=== PATIENT | male | born 1965 | race Caucasian/White ===

== ENCOUNTER 2017-09-04 17:21 | Emergency (ER) | payer MEDICARE, MEDICAID ==
[2017-09-04 18:35] VITALS: BP 92/50
--- NOTE | 2017-09-04 18:58 | UC ---
UC General HPI - HPI Summary HPI Summary: per intensive care unit registered nurse and cousin, pt having increasing weakness, fever and no taking food or drink since yesterday. pt also having drastic weight loss over several months of unknown cause. no cough, sob, v/d. - History of Current Complaint Chief Complaint: UCGeneralIllness Stated Complaint: FEVER/NO APPETITE/SHAKES Time Seen by Provider: 09/04/17 18:40 Hx Obtained From: Family/Estate Planning Director Onset/Duration: Gradual Onset Timing: Constant Pain Intensity: 0 Associated Signs & Symptoms: Positive: Decreased Oral Intake, Fever, Weakness. Negative: Cough, Diarrhea, SOB, Vomiting - Allergy/Home Medications Allergies/Adverse Reactions: Allergies Allergy/AdvReac Type Severity Reaction Status Date / Time aspirin Allergy See Comment Verified 09/04/17 18:37 Home Medications: Home Medications Acetaminophen TAB* [Tylenol TAB*] 325 mg PO Q4H PRN 09/04/17 [History Confirmed 09/04/17] guaiFENesin [Cough Syrup] 100 mg PO Q4H PRN 09/04/17 [History Confirmed 09/04/17 ] PMH/Surg Hx/FS Hx/Imm Hx - Additional Past Medical History Additional PMH: Down syndrom, mitral valve regurgitation, ocd, jaxson Endocrine History: Thyroid Disease, Dyslipidemia - Surgical History Surgical History: None - Family History Known Family History: Positive: Unknown - Social History Occupation: Disabled Lives: [facility] Alcohol Use: None Substance Use Type: None Smoking Status (MU): Never Smoked Tobacco Review of Systems Constitutional: Fever Neurological: Weakness Is Patient Immunocompromised?: No All Other Systems Reviewed And Are Negative: No - Comments Additional Review of Systems Comments: pt unable to give ros due to hx downs syndrom and intensive care unit registered nurse/family provided what they could Physical Exam Triage Information Reviewed: Yes Appearance: Ill-Appearing, Thin Vital Signs: Initial Vital Signs Temp 101.4 F 09/04/17 18:26 Pulse 84 09/04/17 18:26 Resp 16 09/04/17 18:26 BP 92/50 09/04/17 18:26 Pulse Ox 96 09/04/17 18:26 Vital Signs Reviewed: Yes Eyes: Positive: Conjunctiva Clear ENT: Positive: Pharynx normal, TMs normal, Other - tongue is dry. Negative: Nasal congestion, Nasal drainage Neck: Positive: Supple, Nontender, No Lymphadenopathy Respiratory: Positive: Lungs clear, Normal breath sounds Cardiovascular: Positive: RRR, No Murmur Abdomen Description: Positive: Nontender, No Organomegaly, Soft. Negative: CVA Tenderness (R), CVA Tenderness (L), Guarding Bowel Sounds: Positive: Present Musculoskeletal: Positive: ROM Intact Neurological: Positive: Alert - per baseline Psychological: Positive: Normal Response To Family Skin Exam: Other - pale, dry. Course/Dx - Course Course Of Treatment: GIVEN THE FEVER, WEAKNESS AND BP, THIS MAY BE EARLY SEPSIS. PT REQUIRES ER EVALUATION. EMS DECLINED BY FAMILY MEMEBER AND TEACHER SPECIALIST DESPITE RISK OF WORSENING, MORBIDITY AND MORTALITY ASSOCIATED WITH SEPSIS. THEY WILL DRIVE PT DIRECTLY TO THE [facility] ER. - Differential Dx - Multi-Symptom Provider Diagnoses: FEVER, HYPOTENSION, WEAKNESS Discharge - Sign-Out/Discharge Documenting (check all that apply): Discharge/Admit/Transfer - Discharge Plan Condition: Stable Disposition: TRANS HIGHER LVL OF CARE FAC Referrals: Gladys Hickey PA [Primary Care Provider] - Additional Instructions: GO DIRECTLY TO THE [facility] EMERGENCY ROOM UPON DISCHARGE FROM THIS URGENT CARE. - Billing Disposition and Condition Condition: STABLE Disposition: RA
== END 2017-09-04 19:05 | disposition short-term general hospital (02) ==
LOC: UCCORT 17:21
DX: R50.9 Fever, unspecified (principal); I95.9 Hypotension, unspecified; R53.1 Weakness; Z88.6 Allergy status to analgesic agent
CPT/HCPCS: 99202; G0463

== ENCOUNTER 2018-09-10 18:43 | Inpatient (IN) | payer MEDICARE, MEDICAID ==
--- NOTE | 2018-09-10 20:30 | ED ---
Complex/Multi-Sys Presentation - HPI Summary HPI Summary: Per staff and patient family, patient with history of dementia from assisted living at [facility] in [place] complains of refusing meals, refusing to stand up and ambulate, change in behavior x 3 days. Patient was taken initially taken to [place] ED and then was transferred here as CT machine at [place] is down. CT brain requested. Staff denies known fever, cough, SOB, N/ V/D, change in urine, change in BM. Patient at baseline cannot provide history of present illness information. Medical history is dementia, MR. - History Of Current Complaint Chief Complaint: EDGeneral Time Seen by Provider: 09/10/18 19:06 Hx Obtained From: Family/Cotton Farmer Onset/Duration: Gradual Onset, Lasting Days Timing: Constant Severity Currently: Moderate Severity Initially: Moderate - Allergies/Home Medications Allergies/Adverse Reactions: Allergies Allergy/AdvReac Type Severity Reaction Status Date / Time aspirin Allergy See Comment Verified 09/04/17 18:37 Home Medications: Home Medications Docusate Sodium [Colace] 1 cap PO DAILY 09/10/18 [History Confirmed 09/10/18] Pantoprazole TAB * [Protonix TAB*] 1 tab PO DAILY 09/10/18 [History Confirmed ] Polyethylene Glycol 3350 [Miralax] 1 packet PO DAILY PRN 09/10/18 [History Confirmed 09/10/18] Rivaroxaban TAB(*) [Xarelto 20 mg] 1 tab PO DAILY 09/10/18 [History Confirmed ] Rivastigmine 1 patch TOPICAL DAILY 09/10/18 [History Confirmed 09/10/18] Vit B12/Intrinsic Fact/Folate [Intrinsi B36-Tmmjej Tablet] 1 tab PO DAILY [History Confirmed 09/10/18] PMH/Surg Hx/FS Hx/Imm Hx Endocrine/Hematology History: Denies: Hx Diabetes, Hx Thyroid Disease Cardiovascular History: Denies: Hx Pacemaker/ICD Respiratory History: Denies: Hx Asthma, Hx Chronic Obstructive Pulmonary Disease (COPD) GI History: Denies: Hx Ulcer History: Denies: Hx Dialysis Sensory History: Denies: Hx Eye Prosthesis Opthamlomology History: Denies: Hx Legally Blind EENT History: Denies: Hx Deafness Neurological History: Reports: Hx Dementia Infectious Disease History: No Infectious Disease History: Denies: Hx Hepatitis, Traveled Outside the [place] in Last 30 Days - Family History Known Family History: Positive: Unknown - Social History Alcohol Use: None Substance Use Type: Reports: None Smoking Status (MU): Never Smoked Tobacco Review of Systems Constitutional: Negative Eyes: Negative ENT: Negative Cardiovascular: Negative Respiratory: Negative Gastrointestinal: Negative Genitourinary: Negative Musculoskeletal: Negative Skin: Negative Neurological: Negative Psychological: Normal All Other Systems Reviewed And Are Negative: Yes Physical Exam - Summary Physical Exam Summary: Patient in no apparent distress. Lung sounds clear to auscultation bilaterally. RRR. Abdomen soft nontender. No indication of trauma. Ear exam normal. Patient would not cooperate with oropharyngeal exam. Patient appears dehydrated with dry lips. Triage Information Reviewed: Yes Vital Signs On Initial Exam: Initial Vitals Temp Pulse Resp BP Pulse Ox 100.5 F 91 16 108/61 94 09/10/18 18:48 09/10/18 18:48 09/10/18 18:48 09/10/18 18:48 09/10/18 18:48 Vital Signs Reviewed: Yes Appearance: Positive: Well-Appearing Skin: Positive: Warm Head/Face: Positive: Normal Head/Face Inspection Eyes: Positive: Normal ENT: Positive: TMs normal Neck: Positive: Supple Respiratory/Lung Sounds: Positive: Clear to Auscultation Cardiovascular: Positive: Normal Abdomen Description: Positive: Nontender Musculoskeletal: Positive: Normal Neurological: Positive: Normal Psychiatric: Positive: Normal AVPU Assessment: Alert - David Coma Scale Best Eye Response: 4 - Spontaneous Diagnostics - Vital Signs Vital Signs Temp Pulse Resp BP Pulse Ox 09/10/18 20:00 97 13 79 09/10/18 19:54 69 15 109/62 93 09/10/18 19:24 74 15 106/59 96 09/10/18 19:00 94 19 94 09/10/18 18:55 89 14 108/61 94 09/10/18 18:52 11 09/10/18 18:48 100.5 F 91 16 108/61 94 - Laboratory Result Diagrams: 09/10/18 20:43 09/10/18 20:43 Lab Statement: Any lab studies that have been ordered have been reviewed, and results considered in the medical decision making process. Complex Multi-Symp Course/Dx Course Of Treatment: Per staff and patient family, patient with history of dementia from assisted living at [facility] in [place] complains of refusing meals, refusing to stand up and ambulate, change in behavior x 3 days. Patient was taken initially taken to [place] ED and then was transferred here as CT machine at [place] is down. CT brain requested. Staff denies known fever, cough, SOB, N/V/D, change in urine, change in BM. Patient at baseline cannot provide history of present illness information. Medical history is dementia, MR. Physical exam:Patient in no apparent distress. Lung sounds clear to auscultation bilaterally. RRR. Abdomen soft nontender. No indication of trauma. Ear exam normal. Patient would not cooperate with oropharyngeal exam. Patient appears dehydrated with dry lips. Temp 100.5. Vital signs otherwise within normal limits. WBC 11.9. CRP 71. Bilirubin 1.4. Labs otherwise unremarkable. Urine negative. CT brain negativ for acute process. Also positive for brain atrophy out of proportion to patient's age. No prior CT to compare to. Chest x-ray unremarkable. Discussed patient with Dr Kurtz who due to Down Syndrome and fever of unknown source recommended CT chest abdomen and pelvis, IV vancomycin and Zosyn. CT chest abdomen pelvis positive only for possible cystitis. UA clean. Patient lives at assisted living, has primary care. Blood cultures are pending. Caregivers will be advised to follow-up with primary care and return to the ED for any new or concerning symptoms. - Diagnoses Provider Diagnoses: Behavioral change, Fever Discharge - Sign-Out/Discharge Documenting (check all that apply): Patient Departure Patient Received Moderate/Deep Sedation with Procedure: No - Discharge Plan Condition: Stable Disposition: HOME Referrals: Gladys Hickey PA [Primary Care Provider] - Additional Instructions: Follow-up with primary care for further evaluation. Return to the ED for any new or worsening symptoms. - Billing Disposition and Condition Condition: STABLE Disposition: Home
[2018-09-10 20:39] LABS: Urine Appearance Clear; Urine Bacteria Absent (Absent); Urine Bilirubin Negative (Negative); Urine Blood 1+ (Negative); Urine Color Amber; Urine Glucose Negative (Negative); Urine Ketones Trace (Negative); Urine Nitrite Negative (Negative); Urine Protein Negative (Negative); Urine Red Blood Cell 1+(3-5/hpf) (Absent); Urine Specific Gravity 1.029 (1.010-1.030); Urine Urobilinogen Negative (Negative); Urine White Blood Cell Trace(0-5/hpf) (Absent)
[2018-09-10] MEDS ORDERED: NS 0.9% 1000 ML** 1,000 ML IV ONE ×3 (20:40→23:41)
[2018-09-10 20:53] LABS: ABS Lymphocytes 1.2 10^3/ul (1.0-4.8); ABS Monocytes 1.3 10^3/ul (0-0.8); ABS Neutrophils 9.2 10^3/ul (1.5-7.7); Hematocrit 46 % (42-52); Hemoglobin 15.3 g/dL (14.0-18.0); Lymphocyte % 9.9 %; Mean Corpuscular HGB Conc 33 g/dL (31-36); Mean Corpuscular Hemoglobin 34 pg (27-31); Mean Corpuscular Volume 101 fL (80-94); Mean Platelet Volume 6.3 fL (7.4-10.4); Platelet Count 219 10^3/uL (150-450); Red Blood Count 4.51 10^6 /uL (4.18-5.48); Red Cell Distribution Width 14 % (10.5-15); White Blood Count 11.7 10^3/uL (3.5-10.8)
[2018-09-10 21:09] LABS: Albumin 4.3 g/dL (3.2-5.2); Albumin/Globulin Ratio 1.3 (1-3); BUN/Creatinine Ratio 18.9 (8-20); C Reactive Protein 71.73 mg/L (<8.01); Calcium 9.8 mg/dL (8.6-10.3); EGFR African American 88.4 (>60); EGFR Non-African American 73.1 (>60); Globulin 3.3 g/dL (2-4); Potassium 3.8 mmol/L (3.5-5.0); Total Bilirubin 1.4 mg/dL (0.2-1.0); Total Protein 7.6 g/dL (6.4-8.9)
[2018-09-10] MEDS ORDERED: Acetaminophen TAB* 325 MG PO ONE (21:49)
[2018-09-10] MEDS ORDERED: Piperacillin/Tazobac ADVAN(*) 3.375 GM in NS 0.9% 100 ML* 100 ML IVPB ONE (23:39)
[2018-09-10] MEDS ORDERED: Vancomycin(*) 1,000 MG in NS 0.9% 250 ML* 250 ML IVPB ONE (23:40)
[2018-09-11] MEDS ORDERED: Iohexol 300* (CONTRAST) 10 ML SDV IV ONE (01:16)
[2018-09-11] MEDS ORDERED: KETAMINE HCL* 50 MG/ML 10 ML VIAL IV ONE (03:33)
[2018-09-11] MEDS ORDERED: Midazolam* 1 MG/ML 5 ML VIAL (5 MG) IV SLOW PU ONE (03:34)
[2018-09-11] MEDS ORDERED: Lidocaine 2% EPI 1:200000 MPF*10-20 ML VIAL ONE (03:41)
--- NOTE | 2018-09-11 03:51 | ED ---
Progress - Progress Note Progress Note: LEVON Rangel had discharge disposition on this patient at shift change 0230. Upon being discharged by the nurse, patient was unable to stand up. Patient's attendants state this was abnormal. Patient had jerky rhythmic movements of extremities, not atypical of seizures. Lumbar puncture rule-out meningitis was performed. Lumbar puncture procedure note: Consent received from guardians. Left lateral decubitus position spinal canal L4-L5, Moderate sedation. Used 20 guage spinal needle and 4 tubes collected. Moderate Sedation procedure:Ketamine and Versed used, Moderate Sedation protocol implemented. No reversal agent used. Vital signs stable throughout procedure. Patient took procedure well. Dr. Arguello accepted the patient for admission. The plan was discussed with the patient and he was agreeable with this plan. Course/Dx - Course Course Of Treatment: LEVON Rangel had discharge disposition on this patient at shift change 0230. Upon being discharged by the nurse, patient was unable to stand up. Patient's attendants state this was abnormal. Patient had jerky rhythmic movements of extremities, not atypical of seizures. Lumbar puncture rule-out meningitis was performed. Lumbar puncture procedure note: Consent received from guardians. Left lateral decubitus position spinal canal L4-L5, Moderate sedation. Used 20 guage spinal needle and 4 tubes collected. Moderate Sedation procedure:Ketamine and Versed used, Moderate Sedation protocol implemented. No reversal agent used. Vital signs stable throughout procedure. Patient took procedure well. Dr. Arguello accepted the patient for admission. The plan was discussed with the patient and he was agreeable with this plan. - Diagnoses Provider Diagnoses: Altered mental status, Weakness Discharge - Sign-Out/Discharge Documenting (check all that apply): Patient Departure - Admission, Receiving Sign-Out Receiving patient FROM: Eder Rangel Patient Received Moderate/Deep Sedation with Procedure: Yes - Discharge Plan Condition: Stable Disposition: ADMITTED TO [facility] - Billing Disposition and Condition Condition: STABLE Disposition: Admitted to [facility] - Attestation Statements Document Initiated by Mike: Yes Documenting Dionicioibranulfo: Jamie Cardona Provider For Whom Mike is Documenting (Include Credential): Noelle Kurtz MD Scribe Attestation: Jamie Martines scribed for Noelle Kurtz MD on 09/11/18 at 0556. Scribe Documentation Reviewed: Yes Provider Attestation: The documentation as recorded by the Jamie castañeda accurately reflects the service I personally performed and the decisions made by me, Noelle Kurtz MD Status of Scribe Document: Viewed
[2018-09-11 03:54] LABS: Hematocrit 40 % (42-52); Hemoglobin 13.7 g/dL (14.0-18.0); Mean Corpuscular HGB Conc 34 g/dL (31-36); Mean Corpuscular Hemoglobin 35 pg (27-31); Mean Corpuscular Volume 102 fL (80-94); Mean Platelet Volume 6.2 fL (7.4-10.4); Platelet Count 180 10^3/uL (150-450); Red Blood Count 3.92 10^6 /uL (4.18-5.48); Red Cell Distribution Width 14 % (10.5-15); White Blood Count 7.9 10^3/uL (3.5-10.8)
[2018-09-11 04:20] LABS: Body Fluid Source Cerebral Spinal
[2018-09-11 04:33] LABS: CSF Glucose 98 mg/dL (40-70)
[2018-09-11] MEDS ORDERED: Acetaminophen TAB* 325 MG PO PRN (05:04)
[2018-09-11 05:32] LABS: Body Fluid Mono 44 %
[2018-09-11 05:41] LABS: Body Fluid Mono 64 %
[2018-09-11] MEDS: Levothyroxine TAB* 88 MCG TAB PO SCH ×2 (06:00→12:45)
--- NOTE | 2018-09-11 07:07 | HP ---
CC: LEVON Carranza* HISTORY AND PHYSICAL: DATE OF ADMISSION: 09/11/18 PRIMARY CARE PROVIDER: LEVON Carranza. CHIEF COMPLAINT: Generalized weakness. HISTORY OF PRESENT ILLNESS: Gasper Barron is a 53-year-old male with history of Down syndrome with recent diagnosis of dementia, who lives in a Nursing Home [facility] in [place] and who was brought into the hospital under night of 09/10/18, after he had been refusing to get up, had decreased appetite for the past week. Apparently, the patient was seen at [facility] 4 days ago with abdominal pain, which it is not clear if it fully resolved or not. At that point, his workup was unremarkable. He presented to our hospital after he was noted to refuse to get up and walk and has had decreased appetite. Here, he had mildly decreased systolic pressures. Received several intravenous fluid boluses. He was noted to have a temperature of 100.5 and was treated with broad spectrum antibiotics. Eventually, after several hours of observation, Dr. Kurtz did a lumbar puncture on the patient. The patient received ketamine and Versed and currently is very sedated. Most of the information is gathered from the patient's help/aide, who came in from [facility] in [place] as well as his sister, healthcare proxy, Bria Liu, who was by the bedside. At baseline, the patient apparently is able to walk with a gait weight when he is outside and without any help when he is in his familiar environment. He is without any major problems at his baseline and the communication is impaired though due to dysarthria, which is chronic. PAST MEDICAL HISTORY: 1. History of Down syndrome. 2. History of dementia. 3. History of OCD. 4. Hypothyroidism. 5. Hyperlipidemia. 6. History of mitral regurgitation. 7. History of moderate intellectual disability. 8. Obstructive sleep apnea. The patient had not tolerated CPAP in the past. 9. History of diagnosis of appositional defiant disorder. 10. The patient has a history of diagnosis of PE after hospitalization a year ago. MEDICATIONS: Medications at home include: 1. Colace 100 mg daily. 2. Rivastigmine 1 patch daily. 3. Xarelto 1 tablet daily. 4. MiraLAX 1 packet daily p.r.n. 5. Protonix 40 mg daily. 6. Vitamin B12 with intrinsic factor 1 tablet daily. 7. Acetaminophen on p.r.n. basis. 8. Lac-Hydrin cream topically b.i.d. p.r.n. 9. Vitamin D3 1000 units daily. 10. Guaifenesin on a p.r.n. basis. 11. Multivitamin daily 1 tablet. 12. Synthroid at 88 mcg daily. FAMILY HISTORY: Unable to obtain. SOCIAL HISTORY: The patient has been in an institution for the past ever since he turned 21. His healthcare proxy is his sister, Bria, who is currently by the bedside. There is no history of tobacco, alcohol or drug use. REVIEW OF SYSTEMS: Please see history of present illness, otherwise unobtainable due to the patient's marked sedation. PHYSICAL EXAMINATION GENERAL: The patient is a 53-year-old male who is sedated, lying in bed, in no acute distress. The patient is not able to follow commands. He is nonverbal currently due to sedation. VITAL SIGNS: Blood pressure of 95/60, heart rate of 71 and regular, respiratory rate 15, oxygen saturation 89% on oxygen. The patient has had problems with oxygenation ever since he had been heavily sedated in the emergency department and he is going to be placed on BiPAP. Temperature 98.7. HEENT: Head: Atraumatic, normocephalic. Eyes: Pupils are 1 mm each minimally reactive to light. Oropharynx clear. Mucosa moist. NECK: Supple. No JVD, no bruits bilaterally. RESPIRATORY: Clear to auscultation bilaterally, but the patient is noted to have upper respiratory rhonchi with inspiration due to likely obstructive sleep apnea. CARDIOVASCULAR: Regular rate and rhythm. No murmurs. ABDOMEN: Soft and nontender. Bowel sounds are present. EXTREMITIES: There is no edema. Pulses are +2 bilaterally. No clubbing or cyanosis. NEUROLOGIC: On neuro evaluation, very limited due to the patient's sedation. The patient's face is symmetrical. He withdraws to pain and equally in all 4 extremities. DIAGNOSTIC STUDIES/LAB DATA: Cerebrospinal fluid analysis showed colorless clear fluid with 0 white blood cells, 1 red blood cells, lymphocytes. Glucose level was 98, total protein of 74. Sodium of 143, potassium 3.8, chloride 107, carbon dioxide 28, BUN 20, creatinine was 1.06. Bilirubin 1.4. Serial troponin of . AST was 42, ALT of 27, alkaline phosphatase of 58. Total CPK of 765. White blood cell count 7.9, hemoglobin of 13.7, hematocrit of 40, MCV of 110, platelets of 180. CT obtained of the abdomen and pelvis; impression: "Findings suggestive of cystitis. Indeterminate right renal lesion, recommend renal protocol MRI or CT in 6 to 12 months. The low-attenuation renal calculus in the midpole of the right kidney measures 1.2 cm." The patient's urinalysis showed trace ketones and trace blood. Brain CT; impression: "No acute intracranial abnormality. Brain atrophy out of proportion to the patient's age." Portable chest x-ray did by myself prior to the official radiology report showed no acute cardiopulmonary abnormality. ASSESSMENT AND PLAN: 1. The patient has low-grade fever, elevated C-reactive protein. So far, there is no source of infection including the cerebrospinal fluid analysis that was basically negative and mildly increased protein level, which may be due to the patient's dementia. I suspect a dehydration. At this point, the patient will be placed in the intensive care unit due to the need for BiPAP. The patient was sedated for the lumbar puncture procedure and has history of obstructive sleep apnea. At this point, the patient received Zosyn and vancomycin in the emergency room. I will not continue these antibiotics, we will continue monitoring the patient. Blood cultures were already obtained. 2. Past history of gastroesophageal reflux disease. Pantoprazole is going to be continued. 3. History of dementia. Rivastigmine is going to be continued. 4. The patient has a history of pulmonary embolism and Xarelto is also going to be continued. 5. The patient's code status was discussed with the patient's sister, Bria, who requested for the patient to be do not resuscitate and do not intubate and appropriate MOLST was signed. TIME SPENT: Approximately 62 minutes was spent in evaluation of this patient in the emergency room at admission, more than half of that time was spent face- to-face with the patient. [id number]/CPS #: [id number] MTDD
[2018-09-11] MEDS: NS 0.9% 1000 ML** 1,000 ML IV SCH (07:51)
--- NOTE | 2018-09-11 08:30 | PN ---
Subjective Date of Service: 09/11/18 Interval History: Seen with daughter/HCP at bedside. Patient has been increasingly weak, sleeping, lethargic over the last week She did notice sinus congestion and conveys a recent URI in herself after a visit to him recently (timing uncertain) This AM nursing notes reviewed and discussed with covering RN - when asleep O2sat decreased to 65% which improved with waking patient up. Significant O2 drops noted while on NC when asleep which rebound to high 90s when awake. Objective Active Medications: Acetaminophen (Tylenol Tab*) 650 mg PO Q4H PRN PRN Reason: FEVER/PAIN Docusate Sodium (Colace Cap*) 100 mg PO DAILY [facility] Sodium Chloride (Ns 0.9% 1000 Ml) 1,000 mls @ 100 mls/hr IV PER RATE [facility] Stop: 09/12/18 15:14 Last Admin: 09/11/18 07:51 Dose: 100 mls/hr Ceftriaxone Sodium 1 gm/ (Sodium Chloride) 50 mls @ 200 mls/hr IVPB Q24H [facility] Levothyroxine Sodium (Synthroid Tab*) 88 mcg PO 0600 [facility] Last Admin: 09/11/18 06:00 Dose: Not Given Pantoprazole Sodium (Protonix Tab*) 40 mg PO DAILY [facility] Rivaroxaban (Xarelto(*)) 20 mg PO DAILY [facility] Rivastigmine (Exelon Patch(Nf)) 1 patch TRANSDERM DAILY [facility] Vital Signs - 8 hr 09/11/18 09/11/18 09/11/18 00:54 01:00 01:23 Temperature 98.7 F Pulse Rate 72 69 Respiratory 12 12 Rate Blood Pressure 98/54 (mmHg) O2 Sat by Pulse 94 92 Oximetry 09/11/18 09/11/18 09/11/18 01:55 02:00 02:55 Temperature Pulse Rate 67 Respiratory 18 15 10 Rate Blood Pressure 95/60 109/76 (mmHg) O2 Sat by Pulse 78 Oximetry 09/11/18 09/11/18 09/11/18 03:00 03:39 03:55 Temperature Pulse Rate 78 75 Respiratory 23 15 Rate Blood Pressure 103/61 103/57 (mmHg) O2 Sat by Pulse 98 98 Oximetry 09/11/18 09/11/18 09/11/18 04:00 04:06 04:11 Temperature Pulse Rate 69 82 82 Respiratory Rate Blood Pressure 93/57 90/55 (mmHg) O2 Sat by Pulse 98 98 99 Oximetry 09/11/18 09/11/18 09/11/18 04:16 04:21 04:26 Temperature Pulse Rate 81 82 80 Respiratory Rate Blood Pressure 95/51 90/52 87/52 (mmHg) O2 Sat by Pulse 99 99 99 Oximetry 09/11/18 09/11/18 09/11/18 04:31 04:36 04:52 Temperature Pulse Rate 84 77 83 Respiratory Rate Blood Pressure 100/57 89/50 88/52 (mmHg) O2 Sat by Pulse 94 99 97 Oximetry 09/11/18 09/11/18 09/11/18 04:56 05:00 05:01 Temperature Pulse Rate 73 75 75 Respiratory Rate Blood Pressure 94/53 89/64 (mmHg) O2 Sat by Pulse 99 98 98 Oximetry 09/11/18 09/11/18 09/11/18 05:25 05:36 05:41 Temperature Pulse Rate 71 70 69 Respiratory 21 Rate Blood Pressure 101/68 103/77 (mmHg) O2 Sat by Pulse 100 100 100 Oximetry 09/11/18 09/11/18 09/11/18 05:56 06:00 06:21 Temperature 98.5 F Pulse Rate 81 71 68 Respiratory 14 Rate Blood Pressure 83/54 145/88 (mmHg) O2 Sat by Pulse 94 100 98 Oximetry 09/11/18 09/11/18 09/11/18 06:52 07:00 07:22 Temperature Pulse Rate 66 72 72 Respiratory 12 13 18 Rate Blood Pressure 87/51 106/65 (mmHg) O2 Sat by Pulse 93 91 96 Oximetry 09/11/18 07:48 Temperature 99 F Pulse Rate Respiratory Rate Blood Pressure (mmHg) O2 Sat by Pulse Oximetry Oxygen Devices in Use Now: Nasal Cannula Appearance: lethargic, NAD Eyes: No Scleral Icterus, PERRLA Ears/Nose/Mouth/Throat: NL Teeth, Lips, Gums Neck: NL Appearance and Movements; NL JVP, Trachea Midline Respiratory: Symmetrical Chest Expansion and Respiratory Effort, Clear to Auscultation Cardiovascular: RRR Abdominal: NL Sounds; No Tenderness; No Distention, No Hepatosplenomegaly Lymphatic: No Cervical Adenopathy Skin: No Rash or Ulcers Neurological: Alert and Oriented x 3 Result Diagrams: 09/11/18 03:47 09/10/18 20:43 Microbiology and Other Data: Microbiology 09/11/18 04:10 CSF Gram Stain (Tube 3) - Preliminary Cerebral Spinal Fluid Assess/Plan/Problems-Billing Assessment: 53 yo M h/o downs syndrome, dementia, moderate intellectual disability, BEVERLY ( unable to tolerate CPAP at home), PE pw increased fatigue, weakness low grade fever - Patient Problems (1) Renal mass Comment: Right Followup imaging in 6 and 12 months (2) Cystitis Comment: UA with blood but no other indication of infection CT abdomnen with suspicion for cystitis CRP 71 on presentation received vanco/zosyn on presentation c/w CTX and another liter NS (3) Hypoxia Comment: suspect iatrogenic in setting of sedation provided for LP monitor in ICU until recovered no e/o PNA On AC for h/o PE No present on admisison (4) Weakness Comment: Suspect cystitis vs viral Recent contact with daughter who had viral URI symptoms and pt with sinus congestion abx for possible cystitis, d/c if urine cx negative monitor for improvement no recent med changes (5) Hypothyroid Comment: c/w home dose levothyroxine check TSH (added to ED labs) (6) History of pulmonary embolism Comment: almas (7) DVT prophylaxis Comment: almas
[2018-09-11 09:03] LABS: TSH (Thyroid Stimulating Horm) 0.99 mcIU/mL (0.34-5.60)
[2018-09-11] MEDS: cefTRIAXone(*) 1 GM in NS 0.9% 50 ML* 50 ML IVPB SCH (09:06)
[2018-09-11] MEDS: CMC:Rivastigmine PATCH 9.5 MG(NF) PATCH TRANSDERM SCH (12:45)
[2018-09-11] MEDS: Pantoprazole TAB * 40 MG TAB PO SCH (12:48)
[2018-09-11] MEDS: Docusate CAP* 100 MG PO SCH (12:50)
[2018-09-11] MEDS: Rivaroxaban TAB(*) 20 MG TAB PO SCH (17:27)
[2018-09-12] MEDS: NS 0.9% 1000 ML** 1,000 ML IV SCH ×2 (00:58→15:24)
[2018-09-12] MEDS: Levothyroxine TAB* 88 MCG TAB PO SCH (05:51)
[2018-09-12 07:02] LABS: ABS Eosinophils 0.1 10^3/ul (0-0.6); ABS Lymphocytes 1.3 10^3/ul (1.0-4.8); ABS Monocytes 0.6 10^3/ul (0-0.8); ABS Neutrophils 4.3 10^3/ul (1.5-7.7); Hematocrit 36 % (42-52); Hemoglobin 12.3 g/dL (14.0-18.0); Lymphocyte % 20.1 %; Mean Corpuscular HGB Conc 35 g/dL (31-36); Mean Corpuscular Hemoglobin 35 pg (27-31); Mean Corpuscular Volume 101 fL (80-94); Mean Platelet Volume 6.5 fL (7.4-10.4); Nucleated Red Blood Cells % 0.1; Platelet Count 159 10^3/uL (150-450); Red Blood Count 3.52 10^6 /uL (4.18-5.48); Red Cell Distribution Width 14 % (10.5-15); White Blood Count 6.2 10^3/uL (3.5-10.8)
[2018-09-12 07:16] LABS: BUN/Creatinine Ratio 13.9 (8-20); Calcium 8.2 mg/dL (8.6-10.3); EGFR African American 138.2 (>60); EGFR Non-African American 114.2 (>60); Potassium 3.4 mmol/L (3.5-5.0)
[2018-09-12] MEDS: CMC:Rivastigmine PATCH 9.5 MG(NF) PATCH TRANSDERM SCH (09:48)
[2018-09-12] MEDS: Rivaroxaban TAB(*) 20 MG TAB PO SCH (09:48)
[2018-09-12] MEDS: Pantoprazole TAB * 40 MG TAB PO SCH (09:49)
[2018-09-12] MEDS: Docusate CAP* 100 MG PO SCH (09:49)
[2018-09-12] MEDS: cefTRIAXone(*) 1 GM in NS 0.9% 50 ML* 50 ML IVPB SCH (12:58)
[2018-09-12 15:45] LABS: CSF VDRL Negative (Negative)
--- NOTE | 2018-09-12 16:50 | PN ---
Subjective Date of Service: 09/12/18 Interval History: Seen with mother at bedside More alert today. Talking (always difficult to understand) but not as talkative as baseline Pt without complaints Objective Active Medications: Acetaminophen (Tylenol Tab*) 650 mg PO Q4H PRN PRN Reason: FEVER/PAIN Docusate Sodium (Colace Cap*) 100 mg PO DAILY [facility] Last Admin: 09/12/18 09:49 Dose: 100 mg Ceftriaxone Sodium 1 gm/ (Sodium Chloride) 50 mls @ 200 mls/hr IVPB Q24H [facility] Last Admin: 09/12/18 12:58 Dose: 200 mls/hr Sodium Chloride (Ns 0.9% 1000 Ml) 1,000 mls @ 125 mls/hr IV PER RATE [facility] Stop: 09/13/18 22:14 Last Admin: 09/12/18 15:24 Dose: 125 mls/hr Levothyroxine Sodium (Synthroid Tab*) 88 mcg PO 0600 [facility] Last Admin: 09/12/18 05:51 Dose: 88 mcg Pantoprazole Sodium (Protonix Tab*) 40 mg PO DAILY [facility] Last Admin: 09/12/18 09:49 Dose: 40 mg Rivaroxaban (Xarelto(*)) 20 mg PO DAILY [facility] Last Admin: 09/12/18 09:48 Dose: 20 mg Rivastigmine (Exelon Patch(Nf)) 1 patch TRANSDERM DAILY [facility] Last Admin: 09/12/18 09:48 Dose: 1 patch Vital Signs - 8 hr 09/12/18 09/12/18 09/12/18 10:51 12:30 15:41 Temperature 97.8 F 99.2 F Pulse Rate 62 65 Respiratory 16 16 18 Rate Blood Pressure 93/58 98/46 (mmHg) O2 Sat by Pulse 95 100 Oximetry Oxygen Devices in Use Now: None Appearance: sitting up in bed, talks a little with me then goes back to sleep, NAD Eyes: No Scleral Icterus, PERRLA Ears/Nose/Mouth/Throat: Clear Oropharnyx, Mucous Membranes Moist Neck: NL Appearance and Movements; NL JVP, Trachea Midline Respiratory: Symmetrical Chest Expansion and Respiratory Effort, Clear to Auscultation Cardiovascular: RRR Abdominal: - - mild TTP suprapubic Lymphatic: No Cervical Adenopathy Extremities: No Edema Skin: No Rash or Ulcers Neurological: - - aoxo, mummbles unintelligably Result Diagrams: 09/12/18 06:41 09/12/18 06:41 Microbiology and Other Data: Microbiology 09/11/18 04:10 CSF Gram Stain (Tube 3) - Preliminary Cerebral Spinal Fluid Assess/Plan/Problems-Billing Assessment: 53 yo M h/o downs syndrome, dementia, moderate intellectual disability, BEVERLY ( unable to tolerate CPAP at home), PE p/w increased fatigue, weakness low grade fever - Patient Problems (1) Renal mass Comment: Right Followup imaging in 6 and 12 months (2) Cystitis Comment: UA with blood but no other indication of infection CT abdomnen with suspicion for cystitis CRP 71 on presentation received vanco/zosyn on presentation c/w CTX c/w normal saline (3) Hypoxia Status: Resolved Comment: suspect iatrogenic in setting of sedation provided for LP monitored in ICU until recovered now resolved and on RA no e/o PNA On AC for h/o PE (4) Weakness Comment: Suspect cystitis vs viral Recent contact with daughter who had viral URI symptoms and pt with sinus congestion abx for possible cystitis, d/c if urine cx negative monitor for improvement no recent med changes Several labs tests from LP pending (5) Hypothyroid Comment: c/w home dose levothyroxine (6) History of pulmonary embolism Comment: almas (7) DVT prophylaxis Comment: almas
[2018-09-12 21:13] LABS: HSV 1 PCR, CSF Negative (Negative); HSV 2 PCR, CSF Negative (Negative)
[2018-09-13] MEDS: NS 0.9% 1000 ML** 1,000 ML IV SCH (00:10)
[2018-09-13] MEDS: Levothyroxine TAB* 88 MCG TAB PO SCH (05:54)
[2018-09-13 06:09] LABS: ABS Eosinophils 0.1 10^3/ul (0-0.6); ABS Lymphocytes 1.3 10^3/ul (1.0-4.8); ABS Monocytes 0.4 10^3/ul (0-0.8); ABS Neutrophils 2.7 10^3/ul (1.5-7.7); Eosinophil % 1.8 %; Hematocrit 34 % (42-52); Hemoglobin 11.7 g/dL (14.0-18.0); Lymphocyte % 27.9 %; Mean Corpuscular HGB Conc 35 g/dL (31-36); Mean Corpuscular Hemoglobin 35 pg (27-31); Mean Corpuscular Volume 101 fL (80-94); Mean Platelet Volume 6.8 fL (7.4-10.4); Nucleated Red Blood Cells % 0.1; Platelet Count 164 10^3/uL (150-450); Red Blood Count 3.35 10^6 /uL (4.18-5.48); Red Cell Distribution Width 13 % (10.5-15); White Blood Count 4.5 10^3/uL (3.5-10.8)
[2018-09-13 06:39] LABS: Calcium 8.1 mg/dL (8.6-10.3); EGFR African American 145.1 (>60); EGFR Non-African American 119.9 (>60); Potassium 3.3 mmol/L (3.5-5.0)
[2018-09-13] MEDS ORDERED: Potassium Chloride* LIQUID 20 MEQ/15 ML UDC PO ONE (07:25)
[2018-09-13] MEDS: Docusate CAP* 100 MG PO SCH (08:00)
[2018-09-13] MEDS: Pantoprazole TAB * 40 MG TAB PO SCH (08:00)
[2018-09-13] MEDS: cefTRIAXone(*) 1 GM in NS 0.9% 50 ML* 50 ML IVPB SCH (08:00)
[2018-09-13] MEDS: Rivaroxaban TAB(*) 20 MG TAB PO SCH (08:00)
[2018-09-13] MEDS: CMC:Rivastigmine PATCH 9.5 MG(NF) PATCH TRANSDERM SCH (08:04)
--- NOTE | 2018-09-13 18:03 | PN ---
Subjective Date of Service: 09/13/18 Interval History: Seen with daughter at bedside Much improved today, eating more, closer to his baseline fever overnight to 100.9 Objective Active Medications: Acetaminophen (Tylenol Tab*) 650 mg PO Q4H PRN PRN Reason: FEVER/PAIN Last Admin: 09/13/18 00:10 Dose: 650 mg Docusate Sodium (Colace Cap*) 100 mg PO DAILY [facility] Last Admin: 09/13/18 08:00 Dose: 100 mg Ceftriaxone Sodium 1 gm/ (Sodium Chloride) 50 mls @ 200 mls/hr IVPB Q24H [facility] Last Admin: 09/13/18 08:00 Dose: 200 mls/hr Sodium Chloride (Ns 0.9% 1000 Ml) 1,000 mls @ 125 mls/hr IV PER RATE [facility] Stop: 09/13/18 22:14 Last Admin: 09/13/18 00:10 Dose: 125 mls/hr Levothyroxine Sodium (Synthroid Tab*) 88 mcg PO 0600 [facility] Last Admin: 09/13/18 05:54 Dose: 88 mcg Pantoprazole Sodium (Protonix Tab*) 40 mg PO DAILY [facility] Last Admin: 09/13/18 08:00 Dose: 40 mg Rivaroxaban (Xarelto(*)) 20 mg PO DAILY [facility] Last Admin: 09/13/18 08:00 Dose: 20 mg Rivastigmine (Exelon Patch(Nf)) 1 patch TRANSDERM DAILY [facility] Last Admin: 09/13/18 08:04 Dose: 1 patch Vital Signs - 8 hr 09/13/18 09/13/18 11:28 15:15 Temperature 98.7 F 98.4 F Pulse Rate 77 74 Respiratory 17 24 Rate Blood Pressure 112/66 105/52 (mmHg) O2 Sat by Pulse 94 96 Oximetry Oxygen Devices in Use Now: None Appearance: non-verbal with this author, NAD Eyes: No Scleral Icterus, PERRLA Ears/Nose/Mouth/Throat: NL Teeth, Lips, Gums, Clear Oropharnyx Neck: NL Appearance and Movements; NL JVP, Trachea Midline Respiratory: Symmetrical Chest Expansion and Respiratory Effort, Clear to Auscultation Cardiovascular: NL Sounds; No Murmurs; No JVD, RRR Abdominal: NL Sounds; No Tenderness; No Distention, No Hepatosplenomegaly Lymphatic: No Cervical Adenopathy Extremities: No Edema Skin: No Rash or Ulcers Neurological: - - AOx0 Result Diagrams: 09/13/18 05:40 09/13/18 05:40 Microbiology and Other Data: Microbiology 09/11/18 04:10 CSF Gram Stain (Tube 3) - Preliminary Cerebral Spinal Fluid Assess/Plan/Problems-Billing Assessment: 53 yo M h/o downs syndrome, dementia, moderate intellectual disability, BEVERLY ( unable to tolerate CPAP at home), PE p/w increased fatigue, weakness low grade fever - Patient Problems (1) Renal mass Comment: Right Followup imaging in 6 and 12 months (2) Cystitis Comment: UA with blood but no other indication of infection CT abdomnen with suspicion for cystitis CRP 71 on presentation received vanco/zosyn on presentation c/w CTX d/c normal saline (3) Hypoxia Status: Resolved Comment: suspect iatrogenic in setting of sedation provided for LP monitored in ICU until recovered now resolved and on RA no e/o PNA On AC for h/o PE (4) Weakness Comment: Suspect cystitis vs viral Less likely cystitis 2/2 normal UA and neg growth on urine Recent contact with daughter who had viral URI symptoms and pt with sinus congestion abx for possible cystitis monitor for improvement no recent med changes (5) Hypothyroid Comment: c/w home dose levothyroxine (6) History of pulmonary embolism Comment: xarelnat (7) DVT prophylaxis Comment: almas Status and Disposition: Accepted to [facility]
[2018-09-14] MEDS: Levothyroxine TAB* 88 MCG TAB PO SCH (05:53)
[2018-09-14 07:36] VITALS: BP 102/57
[2018-09-14] MEDS: Rivaroxaban TAB(*) 20 MG TAB PO SCH (07:36)
[2018-09-14] MEDS: CMC:Rivastigmine PATCH 9.5 MG(NF) PATCH TRANSDERM SCH (07:36)
[2018-09-14] MEDS: Docusate CAP* 100 MG PO SCH (07:36)
[2018-09-14] MEDS: Pantoprazole TAB * 40 MG TAB PO SCH (07:36)
--- NOTE | 2018-09-14 10:56 | DS ---
DATE OF ADMISSION: 09/10/2018. DATE OF DISCHARGE: 09/14/2018. DISPOSITION ON DISCHARGE: Subacute rehab. CONDITION ON DISCHARGE: Improved. PRIMARY DIAGNOSES: Lethargy, fever, suspected viral illness. SECONDARY DIAGNOSES: History of Down Syndrome, dementia, OCD, hypothyroidism, hyperlipidemia, mitral regurgitation, moderate intellectual disability, BEVERLY not on CPAP, history of PE on anticoagulation. MEDICATIONS ON DISCHARGE: 1. Docusate one tab daily. 2. Rivastigmine patch daily. 3. Xarelto 20 mg daily. 4. MiraLax one cap daily as needed for constipation. 5. Protonix 40 mg daily. 6. Intrinsi B12 folate tablet daily. 7. Acetaminophen 325 mg every 4 hours as needed. 8. Lac-Hydrin cream topically twice daily. 9. Vitamin D3 1,000 units daily. 10. Guaifenesin 100 mg every 4 hours as needed. 11. Multivitamin one tab daily. 12. Levothyroxine 88 mcg daily. PERTINENT IMAGING: CT chest/abdomen/pelvis: Impression: No CT evidence to correlate with patient symptomatology, but the bladder did have thickened urinary bladder with subtle reticular stranding and there is an indeterminate right renal lesion with a recommendation for a renal protocol MRI or CT in 12 months. MICROBIOLOGY: Negative CSF, blood, and urine cultures. HISTORY OF PRESENT ILLNESS/HOSPITAL COURSE: This is a 53-year-old gentleman with a past medical history as outlined in the history of present illness on the day of admission who presented to the hospital with increased fatigue, decreased appetite, increased weakness, concern for infection, difficult physical exam, and found with a fever, T-max of 100.5 on presentation, prompted sedation as well as a lumbar puncture in the emergency room. He was continued to be drowsy. The following day he was admitted to the hospital by the hospitalist. He was continued on Ceftriaxone for concern of cystitis given CT findings with thickened and reticulated bladder. However, urinalysis ultimately remained negative. On the day of discharge, he was back to his baseline, communicative with this author, eating and drinking; however, he is still going to benefit from physical therapy where he will go to for additional rehab before returning to his facility. Of note are the CT findings recommending repeat MRI or CAT scan in 6 and 12 months for findings of his right renal lesion. Otherwise, no medications were changed on the day of discharge. AT FOLLOW UP, PLEASE: 1. Follow-up indeterminate right renal lesion as indicated twice above. 2. No other specific labs or vitals that need follow-up. TIME SPENT: Greater than 60 minutes were spent on this discharge of this patient, greater than half was spent [id number] with the patient. [id number]/[facility] #: [id number] PARAM
== END 2018-09-14 12:15 | DRG 866 ==
LOC: ED 18:43 → EDHOLD 09-11 05:04 → ICU 09-11 08:15 → MED 09-11 17:57
PROVIDERS: ADMIT Internal Medicine; ATTEND Internal Medicine
PROC: 009U3ZZ Drainage of Spinal Canal, Percutaneous Approach (ICD-10-PCS; principal; 2018-09-11)
PROC: 5A09357 Assistance with Respiratory Ventilation, Less than 24 Consecutive Hours, Continuous Positive Airway Pressure (ICD-10-PCS; 2018-09-11)
DX: B34.9 Viral infection, unspecified (principal); Q90.9 Down syndrome, unspecified; F03.90 Unspecified dementia, unspecified severity, without behavioral disturbance, psychotic disturbance, mood disturbance, and anxiety; F42.9 Obsessive-compulsive disorder, unspecified; E03.9 Hypothyroidism, unspecified; E78.5 Hyperlipidemia, unspecified; N30.90 Cystitis, unspecified without hematuria; N28.89 Other specified disorders of kidney and ureter; R40.2142 Coma scale, eyes open, spontaneous, at arrival to emergency department; K21.9 Gastro-esophageal reflux disease without esophagitis; R09.02 Hypoxemia; R10.9 Unspecified abdominal pain; D64.9 Anemia, unspecified; I34.0 Nonrheumatic mitral (valve) insufficiency; G47.33 Obstructive sleep apnea (adult) (pediatric); Z86.711 Personal history of pulmonary embolism; Z79.01 Long term (current) use of anticoagulants; Z79.890 Hormone replacement therapy; Z88.6 Allergy status to analgesic agent
CPT/HCPCS: 36415; 70450; 71046; 71260; 74177; 80048; 80053; 81003; 81015; 82550; 82803; 82945; 84157; 84443; 85025; 85027; 86140; 86592; 86618; 87040; 87070; 87086; 87205; 87529; 87641; 89051; 94660; 99284; A9270-GY; G8978-GP-CM; G8979-GP-CI; G8987-GO-CN; G8988-GO-CL; J0696; J2250; J2543; J3370; Q9967